=== PATIENT | female | born 1955 | race Caucasian/White ===

== ENCOUNTER 2016-04-10 17:41 | Inpatient (IN) | payer OTHER ==
[~2016-04-10] VITALS: Ht 172.7 cm; Wt 171.3 kg
[~2016-04-10 17:41] MED LIST: ADVAIR HFA120 INHALA IH; BACTRIM,SEPT1 TABLET PO; CALCIUM 600 +1 EAC7 PO; CEFEPIME-D2 GM/50 ML IV; CHILDREN'S ASPI81 M1 PO; CIPRO500 MG PO; CLEOCIN300 MG PO; CLINDAMYCIN HC300 MG PO; COUMADIN5 MG PO; COUMADIN7.5 MG PO; Coumadin,Jantoven PO; DAILY VALUE1 EACH PO; DAILY VITAMIN1 EAC8 PO; Dulcolax PR; ECOTRIN325 MG PO; FAMOTIDINE20 MG PO; FENOFIBRATE200 M1 PO; Feosol PO; HEPARIN SO5000 UNITS SC; HUMALOG100 UNIT/1 SC; HUMALOG100 UNIT/2 SC; LANTUS 10100 UNITS/ SC; LASIX40 MG PO; LEVEMIR FL100 UNIT/1 SC; LEVIMIR SQ; LEXAPRO10 MG PO; LISINOPRIL2.5 MG PO; LO-DOSE ASPIRIN81 M1 PO; LOPRESSOR25 MG PO; LOPRESSOR50 MG PO; LOVENOX150 MG/1 M SC; Lopressor PO; Lovenox SC; MAGNESIUM OXID400 MG PO; METAXALONE800 MG PO; METFORMIN HCL1000 MG PO; METOPROLOL TART25 MG PO; METOPROLOL TART50 MG PO; MILK OF MAGNESI10 ML PO; MOTRIN800 MG PO; MUCINEX600 MG PO; MULTI VITAMIN1 EACH PO; NAPROXEN500 MG PO; NOVOLOG 10100 UNITS/ SC; NOVOLOG PE100 UNITS/ SC; NYSTATIN15 GM TP; NovoLOG Pen 3 ml SC; OXYCODONE HCL15 MG PO; OxyCONTIN PO; PREDNISONE10 MG PO; PROAIR HFA8.5 GM IH; Percocet 5/325,Endoc PO; ROXICODONE5 MG PO; SENNA8.6 MG PO; SPIRIVA1 INHALATI IH; Senokot S,Pericolace PO; TRILIPIX135 MG PO; TYLENOL REGULA325 MG PO; VANCOMYCIN1 GM/150 M IV; VENTOLIN HFA18 GM IH; VITAMIN C500 M1 PO; WARFARIN SODIUM5 MG PO; ZESTRIL2.5 MG PO; ZESTRIL20 MG PO; ZINC50 M2 PO; ZYVOX600 MG PO
[2016-04-10 18:15] LABS: HEMATOCRIT 46.3 % (36.0-46.0); MCH 30.6 PG (29.0-34.0); MCHC 33.7 G/DL (30.0-36.0); MCV 90.8 FL (83-99); MEAN PLAT.VOLUME 10.4 uM^3 (9.5-12.4); PLATELET COUNT 170 K/uL (156-360); RBC DIS.WIDTH-CV 15.6 % (11.8-14.6); RBC DIS.WIDTH-SD 50.5 % (39-53); WHITE BLOOD COUNT 15.9 K/uL (4.1-10.2)
[2016-04-10 18:24] LABS: CHLORIDE 99 mEq/L (99-109); SODIUM 141 mEq/L (136-147)
[2016-04-10 18:26] LABS: GLUCOSE 198 mg/dL (70-99)
[2016-04-10 18:27] LABS: ANION GAP 13 MEQ/L (2-14)
[2016-04-10 18:28] LABS: TOTAL BILIRUBIN 0.9 mg/dL (0.0-1.0)
[2016-04-10 18:29] LABS: ALKALINE PHOSPHATASE 45 IU/L (3-129)
[2016-04-10 18:30] LABS: GFR ESTIMATE (CALCULATED) 35 mL/min/
[2016-04-10 18:31] LABS: UREA NITROGEN (BUN) 37 mg/dL (9-23)
[2016-04-10 19:12] LABS: ADD MIUA? NO; BILIRUBIN NEGATIVE; BLOOD NEGATIVE; COLOR YELLOW ((YELLOW)); GLUCOSE (STRIP) NEGATIVE; KETONES NEGATIVE; LEUKOCYTES NEGATIVE; NITRITE NEGATIVE; PH, URINE 7.5 (5-8); PROTEIN (STRIP) NEGATIVE; SPECIFIC GRAVITY 1.019 (1.000-1.030); UCUL ADDED? NO
[2016-04-10] MEDS ORDERED: XARELTO15 MG PO (19:28)
[2016-04-10] MEDS ORDERED: METFORMIN HCL500 MG PO (19:29)
[2016-04-10] MEDS ORDERED: ESCITALOPRAM OX20 MG PO (19:29)
[2016-04-11] VITALS (8 sets, daily range): BP systolic 115–133; BP diastolic 45–64
[2016-04-11 04:54] LABS: HEMATOCRIT 38.1 % (36.0-46.0); MCV 90.7 FL (83-99)
[2016-04-11 05:03] LABS: CHLORIDE 102 mEq/L (99-109); POTASSIUM 3.8 mEq/L (3.7-5.4); SODIUM 136 mEq/L (136-147)
[2016-04-11 05:06] LABS: ANION GAP 10 MEQ/L (2-14)
[2016-04-11 05:09] LABS: ALKALINE PHOSPHATASE 37 IU/L (3-129); GFR ESTIMATE (CALCULATED) 38 mL/min/; GLUCOSE 339 mg/dL (70-99); TOTAL BILIRUBIN 1.1 mg/dL (0.0-1.0)
[2016-04-11 05:09] LABS: METH RESISTANT S AUREUS PCR NEGATIVE (NEGATIVE)
[2016-04-11 05:10] LABS: UREA NITROGEN (BUN) 36 mg/dL (9-23)
[2016-04-11 05:13] LABS: PROBE CHECK PASS; SPECIMEN PROCESSING CONTROL PASS
[2016-04-11 07:10] LABS: POINT-OF-CARE METER ID UU13113803
[2016-04-11 11:02] LABS: POINT-OF-CARE METER ID UU13113803
[2016-04-11 22:28] LABS: POINT-OF-CARE USER ID 609231305
[2016-04-12] VITALS: BP 105/78
[2016-04-12 01:00] VITALS: BP 132/56
== END 2016-04-12 01:52 | disposition short-term general hospital (02) | DRG 871 ==
LOC: EME 17:41 → EDOF 04-11 01:54 → 4WEST 04-11 03:42
PROVIDERS: Emergency Medicine; Internal Medicine
DX: A41.9 Sepsis, unspecified organism (principal); M72.6 Necrotizing fasciitis; N17.9 Acute kidney failure, unspecified; E66.2 Morbid (severe) obesity with alveolar hypoventilation; Z68.43 Body mass index [BMI] 50.0-59.9, adult; L03.115 Cellulitis of right lower limb; E11.22 Type 2 diabetes mellitus with diabetic chronic kidney disease; I48.2 Chronic atrial fibrillation; R65.20 Severe sepsis without septic shock; I12.9 Hypertensive chronic kidney disease with stage 1 through stage 4 chronic kidney disease, or unspecified chronic kidney disease; E78.5 Hyperlipidemia, unspecified; J44.9 Chronic obstructive pulmonary disease, unspecified; F32.9 Major depressive disorder, single episode, unspecified
CPT/HCPCS: 73700; 74176; 80048; 80053; 80202; 81003; 82948; 83605; 85014; 85018; 85025; 85027; 87040; 87641; 94640; 94640 76; 94799; 99202; 99281; 99285; J1815; J2405; J2543; J3370; J7030; J7050; S0028

== ENCOUNTER 2016-05-30 17:51 | Inpatient (IN) | payer OTHER ==
[~2016-05-30] VITALS: Ht 172.7 cm; Wt 156.0 kg
[~2016-05-30 17:51] MED LIST changes: +ESCITALOPRAM OX20 MG PO; +METFORMIN HCL500 MG PO; +XARELTO15 MG PO
[2016-05-30 19:09] LABS: HEMATOCRIT 45.7 % (36.0-46.0); MCH 29.9 PG (29.0-34.0); MCHC 33.3 G/DL (30.0-36.0); MEAN PLAT.VOLUME 9.7 uM^3 (9.5-12.4); PLATELET COUNT 173 K/uL (156-360); RBC DIS.WIDTH-SD 51.5 % (39-53); RED BLOOD COUNT 5.08 M/uL (3.80-5.20)
[2016-05-30 19:21] LABS: CHLORIDE 100 mEq/L (99-109); POTASSIUM 4.1 mEq/L (3.7-5.4); SODIUM 140 mEq/L (136-147)
[2016-05-30 19:24] LABS: GLUCOSE 119 mg/dL (70-99)
[2016-05-30 19:25] LABS: ANION GAP 14 MEQ/L (2-14)
[2016-05-30 19:27] LABS: ALKALINE PHOSPHATASE 50 IU/L (3-129); GFR ESTIMATE (CALCULATED) 31 mL/min/
[2016-05-30 19:29] LABS: UREA NITROGEN (BUN) 30 mg/dL (9-23)
[2016-05-30 20:39] LABS: ADD MIUA? YES; BILIRUBIN NEGATIVE; BLOOD SMALL; COLOR YELLOW ((YELLOW)); GLUCOSE (STRIP) NEGATIVE; KETONES NEGATIVE; LEUKOCYTES NEGATIVE; NITRITE NEGATIVE; PROTEIN (STRIP) NEGATIVE; SPECIFIC GRAVITY 1.018 (1.000-1.030)
[2016-05-30 20:44] LABS: BACTERIA RARE /HPF; EPITHELIAL CELLS 1+ /HPF; MUCUS NONE SEEN /LPF; RED BLOOD CELLS 0-5 /HPF (0-5); UCUL ADDED? NO; WHITE BLOOD CELLS 0-5 /HPF (0-5)
[2016-05-30] MEDS ORDERED: LANTUS 10100 UNITS/ SC (20:46)
[2016-05-30] MEDS ORDERED: LASIX40 MG PO (20:46)
[2016-05-30] MEDS ORDERED: LOPRESSOR50 MG PO (20:47)
[2016-05-30] MEDS ORDERED: XARELTO15 MG PO (20:47)
[2016-05-30] MEDS ORDERED: GLUCOPHAGE500 MG PO (20:47)
[2016-05-30] MEDS ORDERED: LOFIBRA200 MG PO (20:48)
[2016-05-30] MEDS ORDERED: ADVAIR 100/501 DISK IH (20:48)
[2016-05-30] MEDS ORDERED: ZESTRIL2.5 MG PO (20:48)
[2016-05-30] MEDS ORDERED: HUMALOG100 UNIT/2 SC (20:49)
[2016-05-30] MEDS ORDERED: ZINC50 M3 PO (20:50)
[2016-05-30] MEDS ORDERED: LEXAPRO20 MG PO (20:50)
[2016-05-30] MEDS ORDERED: SPIRIVA1 INHALATI IH (20:50)
[2016-05-30] MEDS ORDERED: THERAGRAN1 TABLET PO (20:50)
[2016-05-30] MEDS ORDERED: CALCIUM 600 +1 EA16 PO (20:51)
[2016-05-30] MEDS ORDERED: BAYER CHEWABLE81 MG PO (20:51)
[2016-05-30] MEDS ORDERED: TYLENOL REGULA325 MG PO (20:51)
[2016-05-30 22:53] LABS: POINT-OF-CARE METER ID UU14100415
[2016-05-31] VITALS (11 sets, daily range): BP systolic 113–160; BP diastolic 52–67
[2016-05-31 05:59] LABS: POINT-OF-CARE METER ID UU14100415
[2016-05-31 06:35] LABS: HEMATOCRIT 36.9 % (36.0-46.0); MCH 30.2 PG (29.0-34.0); MCHC 33.1 G/DL (30.0-36.0); MCV 91.3 FL (83-99); MEAN PLAT.VOLUME 9.2 uM^3 (9.5-12.4); PLATELET COUNT 152 K/uL (156-360); RBC DIS.WIDTH-CV 16.1 % (11.8-14.6); RBC DIS.WIDTH-SD 52.2 % (39-53); RED BLOOD COUNT 4.04 M/uL (3.80-5.20); WHITE BLOOD COUNT 15.7 K/uL (4.1-10.2)
[2016-05-31 06:43] LABS: CHLORIDE 102 mEq/L (99-109); SODIUM 135 mEq/L (136-147)
[2016-05-31 06:46] LABS: ANION GAP 9 MEQ/L (2-14); GLUCOSE 265 mg/dL (70-99)
[2016-05-31 06:48] LABS: ALKALINE PHOSPHATASE 41 IU/L (3-129); GFR ESTIMATE (CALCULATED) 38 mL/min/; TOTAL BILIRUBIN 1.4 mg/dL (0.0-1.0)
[2016-05-31 06:50] LABS: UREA NITROGEN (BUN) 28 mg/dL (9-23)
[2016-05-31 08:41] LABS: POINT-OF-CARE METER ID UU14100415
[2016-05-31 14:19] LABS: POINT-OF-CARE METER ID UU13113702
[2016-06-01] VITALS (7 sets, daily range): BP systolic 117–140; BP diastolic 55–65
[2016-06-01 10:20] LABS: EOSINOPHIL (%) 3.1 % (0-5); EOSINOPHIL COUNT 0.3 K/uL (0-0.3); HEMATOCRIT 34.9 % (36.0-46.0); IMMATURE GRANULOCYTE (%) 0.5 % (0.0-0.7); LYMPHOCYTE COUNT 0.7 K/uL (1.0-2.8); MCH 30.8 PG (29.0-34.0); MCHC 33.2 G/DL (30.0-36.0); MCV 92.6 FL (83-99); MONOCYTE (%) 7.6 % (3-12); MONOCYTE COUNT 0.6 K/uL (0-0.8); NEUTROPHIL (%) 79.8 % (45-76); NEUTROPHIL COUNT 6.6 K/uL (1.8-6.4); PLATELET COUNT 120 K/uL (156-360); RBC DIS.WIDTH-CV 16.4 % (11.8-14.6); RBC DIS.WIDTH-SD 55.3 % (39-53); RED BLOOD COUNT 3.77 M/uL (3.80-5.20); WHITE BLOOD COUNT 8.3 K/uL (4.1-10.2)
[2016-06-01 10:41] LABS: ANION GAP 7 MEQ/L (2-14); CHLORIDE 103 MEQ/L (99-109); POTASSIUM 4.1 MEQ/L (3.7-5.4); SAMPLE HEMOLYSIS CHECK 1; SAMPLE ICTERIC CHECK 0; SAMPLE LIPEMIA CHECK 0; SODIUM 136 MEQ/L (136-147)
[2016-06-01 10:46] LABS: GFR ESTIMATE (CALCULATED) > 59 mL/min/; GLUCOSE 216 mg/dL (70-99); UREA NITROGEN (BUN) 19 mg/dL (9-23)
[2016-06-01 21:02] LABS: POINT-OF-CARE USER ID AHSUCEG
[2016-06-02 03:41] VITALS: BP 135/63
[2016-06-02 06:47] LABS: EOSINOPHIL (%) 2.3 % (0-5); EOSINOPHIL COUNT 0.2 K/uL (0-0.3); HEMATOCRIT 36.1 % (36.0-46.0); IMMATURE GRANULOCYTE (%) 0.5 % (0.0-0.7); LYMPHOCYTE COUNT 0.9 K/uL (1.0-2.8); MCH 28.8 PG (29.0-34.0); MCHC 31.3 G/DL (30.0-36.0); MCV 91.9 FL (83-99); MEAN PLAT.VOLUME 10.1 uM^3 (9.5-12.4); MONOCYTE (%) 6.7 % (3-12); MONOCYTE COUNT 0.6 K/uL (0-0.8); NEUTROPHIL (%) 79.6 % (45-76); NEUTROPHIL COUNT 6.6 K/uL (1.8-6.4); PLATELET COUNT 130 K/uL (156-360); RBC DIS.WIDTH-SD 53.8 % (39-53); RED BLOOD COUNT 3.93 M/uL (3.80-5.20); WHITE BLOOD COUNT 8.2 K/uL (4.1-10.2)
[2016-06-02 07:09] LABS: ANION GAP 8 MEQ/L (2-14); CHLORIDE 105 MEQ/L (99-109); GFR ESTIMATE (CALCULATED) 54 mL/min/; GLUCOSE 195 mg/dL (70-99); MAGNESIUM 1.9 mg/dl (1.3-2.7); POTASSIUM 3.9 MEQ/L (3.7-5.4); SAMPLE HEMOLYSIS CHECK 0; SAMPLE ICTERIC CHECK 0; SAMPLE LIPEMIA CHECK 0; SODIUM 138 MEQ/L (136-147); UREA NITROGEN (BUN) 17 mg/dL (9-23)
[2016-06-02 07:59] VITALS: BP 123/60
[2016-06-02 11:57] VITALS: BP 126/59
[2016-06-02 16:02] VITALS: BP 163/71
[2016-06-02 19:20] VITALS: BP 133/63
[2016-06-02 21:38] LABS: POINT-OF-CARE USER ID AHSUCEG
[2016-06-03] VITALS (7 sets, daily range): BP systolic 128–155; BP diastolic 65–98
[2016-06-03 06:17] LABS: EOSINOPHIL (%) 2.1 % (0-5); EOSINOPHIL COUNT 0.2 K/uL (0-0.3); HEMATOCRIT 35.4 % (36.0-46.0); IMMATURE GRANULOCYTE (%) 1.1 % (0.0-0.7); IMMATURE GRANULOCYTE COUNT 0.1 K/uL; LYMPHOCYTE COUNT 0.9 K/uL (1.0-2.8); MCH 30.3 PG (29.0-34.0); MCHC 32.5 G/DL (30.0-36.0); MCV 93.4 FL (83-99); MEAN PLAT.VOLUME 10.1 uM^3 (9.5-12.4); MONOCYTE (%) 9.8 % (3-12); MONOCYTE COUNT 0.7 K/uL (0-0.8); NEUTROPHIL (%) 73.2 % (45-76); NEUTROPHIL COUNT 5.2 K/uL (1.8-6.4); PLATELET COUNT 143 K/uL (156-360); RBC DIS.WIDTH-SD 54.4 % (39-53); RED BLOOD COUNT 3.79 M/uL (3.80-5.20); WHITE BLOOD COUNT 7.1 K/uL (4.1-10.2)
[2016-06-03 06:42] LABS: ANION GAP 8 MEQ/L (2-14); CHLORIDE 105 MEQ/L (99-109); GFR ESTIMATE (CALCULATED) > 59 mL/min/; GLUCOSE 223 mg/dL (70-99); MAGNESIUM 1.9 mg/dl (1.3-2.7); SAMPLE HEMOLYSIS CHECK 0; SAMPLE ICTERIC CHECK 0; SAMPLE LIPEMIA CHECK 0; SODIUM 138 MEQ/L (136-147); UREA NITROGEN (BUN) 16 mg/dL (9-23)
[2016-06-04 03:07] VITALS: BP 144/66
[2016-06-04 08:00] VITALS: BP 172/77
[2016-06-04 12:07] VITALS: BP 180/84
[2016-06-04] MEDS ORDERED: ZYVOX600 MG PO (14:03)
== END 2016-06-04 18:21 | disposition home or self-care (01) | DRG 603 ==
LOC: EME 17:51 → EDOF 21:38 → 2EAST 21:38
PROVIDERS: Hospitalist; Internal Medicine; Physician Assistant; Student in an Organized Health Care Education/Training Program
PROC: 0HDHXZZ Extraction of Right Upper Leg Skin, External Approach (ICD-10-PCS; principal; 2016-06-01)
DX: L03.115 Cellulitis of right lower limb (principal); F33.9 Major depressive disorder, recurrent, unspecified; Z68.43 Body mass index [BMI] 50.0-59.9, adult; E66.01 Morbid (severe) obesity due to excess calories; E11.22 Type 2 diabetes mellitus with diabetic chronic kidney disease; E11.65 Type 2 diabetes mellitus with hyperglycemia; D69.6 Thrombocytopenia, unspecified; I48.0 Paroxysmal atrial fibrillation; R09.02 Hypoxemia; I12.9 Hypertensive chronic kidney disease with stage 1 through stage 4 chronic kidney disease, or unspecified chronic kidney disease; N18.3 Chronic kidney disease, stage 3 (moderate); J44.9 Chronic obstructive pulmonary disease, unspecified; G47.33 Obstructive sleep apnea (adult) (pediatric); E78.5 Hyperlipidemia, unspecified; R23.8 Other skin changes; Z79.01 Long term (current) use of anticoagulants
CPT/HCPCS: 71020; 74176; 80048; 80053; 80202; 81003; 82948; 83605; 83735; 85025; 85027; 87040; 87070; 87075; 87205; 93005; 93971; 94640; 94640 76; 94799; 99281; 99285; J1815; J2270; J2405; J2543; J3370; J7030; J7050

== ENCOUNTER 2016-08-24 07:43 | Inpatient (IN) | payer OTHER ==
[~2016-08-24] VITALS: Ht 172.7 cm; Wt 159.2 kg
[~2016-08-24 07:43] MED LIST changes: +ADVAIR 100/501 DISK IH; +BAYER CHEWABLE81 MG PO; +CALCIUM 600 +1 EA16 PO; +GLUCOPHAGE500 MG PO; +LEXAPRO20 MG PO; +LOFIBRA200 MG PO; +THERAGRAN1 TABLET PO; +ZINC50 M3 PO
[2016-08-24 09:18] LABS: HEMATOCRIT 41.7 % (36.0-46.0); MCH 29.2 PG (29.0-34.0); MCHC 32.6 G/DL (30.0-36.0); MCV 89.5 FL (83-99); MEAN PLAT.VOLUME 9.5 uM^3 (9.5-12.4); PLATELET COUNT 162 K/uL (156-360); RBC DIS.WIDTH-CV 15.9 % (11.8-14.6); RBC DIS.WIDTH-SD 52.2 % (39-53); RED BLOOD COUNT 4.66 M/uL (3.80-5.20); WHITE BLOOD COUNT 17.5 K/uL (4.1-10.2)
[2016-08-24 09:29] LABS: CHLORIDE 101 mEq/L (99-109); SODIUM 136 mEq/L (136-147)
[2016-08-24 09:31] LABS: GLUCOSE 191 mg/dL (70-99)
[2016-08-24 09:32] LABS: ANION GAP 13 MEQ/L (2-14)
[2016-08-24 09:34] LABS: GFR ESTIMATE (CALCULATED) 45 mL/min/
[2016-08-24 09:35] LABS: UREA NITROGEN (BUN) 22 mg/dL (9-23)
[2016-08-24 10:26] LABS: ADD MIUA? NO; BILIRUBIN NEGATIVE; BLOOD NEGATIVE; COLOR YELLOW ((YELLOW)); GLUCOSE (STRIP) NEGATIVE; KETONES NEGATIVE; LEUKOCYTES NEGATIVE; NITRITE NEGATIVE; PROTEIN (STRIP) NEGATIVE; SPECIFIC GRAVITY 1.011 (1.000-1.030); UCUL ADDED? NO; UROBILINOGEN 0.2 MG/DL (0.2-1.0)
[2016-08-24] MEDS ORDERED: FENOFIBRATE200 M1 PO (13:04)
[2016-08-24] MEDS ORDERED: ADVAIR 250/501 DISK IH (13:04)
[2016-08-24] MEDS ORDERED: PROAIR HFA8.5 GM IH (13:07)
[2016-08-24] MEDS ORDERED: METFORMIN HCL500 MG PO (13:07)
[2016-08-24 15:34] VITALS: BP 130/59
[2016-08-24 17:20] LABS: POINT-OF-CARE METER ID UU14188625
[2016-08-24 19:41] VITALS: BP 106/58
[2016-08-24 21:56] LABS: POINT-OF-CARE METER ID UU14174225
[2016-08-25 00:22] VITALS: BP 153/66
[2016-08-25 06:25] LABS: MCHC 32.8 G/DL (30.0-36.0); MCV 91.5 FL (83-99); MEAN PLAT.VOLUME 9.6 uM^3 (9.5-12.4); PLATELET COUNT 153 K/uL (156-360); RBC DIS.WIDTH-CV 16.2 % (11.8-14.6); RBC DIS.WIDTH-SD 54.7 % (39-53); RED BLOOD COUNT 4.26 M/uL (3.80-5.20)
[2016-08-25 06:38] LABS: WHITE BLOOD COUNT 8.8 K/uL (4.1-10.2)
[2016-08-25 06:55] LABS: ANION GAP 7 MEQ/L (2-14); CHLORIDE 106 MEQ/L (99-109); GFR ESTIMATE (CALCULATED) 49 mL/min/; POTASSIUM 4.1 MEQ/L (3.7-5.4); SAMPLE HEMOLYSIS CHECK 0; SAMPLE ICTERIC CHECK 0; SAMPLE LIPEMIA CHECK 0; SODIUM 140 MEQ/L (136-147); UREA NITROGEN (BUN) 18 mg/dL (9-23)
[2016-08-25 07:02] LABS: GLUCOSE 111 mg/dL (70-99)
[2016-08-25 08:02] LABS: POINT-OF-CARE METER ID UU14188625
[2016-08-25 08:56] VITALS: BP 112/55
[2016-08-25 12:38] LABS: POINT-OF-CARE METER ID UU14188625
[2016-08-25 13:50] VITALS: BP 131/64
[2016-08-25 16:20] VITALS: BP 146/76
[2016-08-25 17:05] LABS: POINT-OF-CARE METER ID UU14188625
[2016-08-25 19:54] VITALS: BP 144/70
[2016-08-25 21:20] LABS: POINT-OF-CARE METER ID UU14174225
[2016-08-25 23:44] VITALS: BP 110/51
[2016-08-26 04:15] VITALS: BP 134/53
[2016-08-26 07:54] VITALS: BP 132/60
[2016-08-26 08:48] LABS: POINT-OF-CARE METER ID UU14174225
[2016-08-26 11:27] VITALS: BP 129/61
[2016-08-26 15:57] VITALS: BP 128/65
[2016-08-26 20:07] VITALS: BP 137/77
[2016-08-27 07:29] VITALS: BP 133/64
[2016-08-27 08:29] LABS: HEMATOCRIT 40.3 % (36.0-46.0); MCHC 32.5 G/DL (30.0-36.0); MCV 89.2 FL (83-99); MEAN PLAT.VOLUME 9.9 uM^3 (9.5-12.4); PLATELET COUNT 177 K/uL (156-360); RBC DIS.WIDTH-CV 15.8 % (11.8-14.6); RED BLOOD COUNT 4.52 M/uL (3.80-5.20)
[2016-08-27 08:32] LABS: CHLORIDE 106 mEq/L (99-109); POTASSIUM 4.1 mEq/L (3.7-5.4); SODIUM 138 mEq/L (136-147)
[2016-08-27 08:35] LABS: ANION GAP 11 MEQ/L (2-14); GLUCOSE 194 mg/dL (70-99)
[2016-08-27 08:38] LABS: GFR ESTIMATE (CALCULATED) 54 mL/min/
[2016-08-27 08:39] LABS: UREA NITROGEN (BUN) 20 mg/dL (9-23)
[2016-08-27 11:10] VITALS: BP 130/62
[2016-08-27 11:45] LABS: POINT-OF-CARE METER ID UU14174225
[2016-08-27 15:47] VITALS: BP 142/63
[2016-08-27 17:20] LABS: POINT-OF-CARE METER ID UU14174225
[2016-08-27 19:54] VITALS: BP 127/56
[2016-08-27 21:44] LABS: POINT-OF-CARE METER ID UU14188625
[2016-08-28 07:46] LABS: POINT-OF-CARE METER ID UU14188625
[2016-08-28 07:55] VITALS: BP 150/62
[2016-08-28] MEDS ORDERED: KEFLEX500 MG PO (09:37)
[2016-08-28 11:20] LABS: POINT-OF-CARE METER ID UU14188625
[2016-08-28 15:29] VITALS: BP 119/56
== END 2016-08-28 16:49 | disposition home or self-care (01) | DRG 602 ==
LOC: EME 07:43 → 5SOUTH 13:17 → EDOF 13:17 → 5SOUTH 15:03
PROVIDERS: Emergency Medicine; Hospitalist; Internal Medicine
DX: L03.317 Cellulitis of buttock (principal); E13.10 Other specified diabetes mellitus with ketoacidosis without coma; I48.2 Chronic atrial fibrillation; Z68.43 Body mass index [BMI] 50.0-59.9, adult; I13.0 Hypertensive heart and chronic kidney disease with heart failure and stage 1 through stage 4 chronic kidney disease, or unspecified chronic kidney disease; I08.1 Rheumatic disorders of both mitral and tricuspid valves; E87.2 Acidosis; E11.22 Type 2 diabetes mellitus with diabetic chronic kidney disease; I50.32 Chronic diastolic (congestive) heart failure; E66.01 Morbid (severe) obesity due to excess calories; F32.9 Major depressive disorder, single episode, unspecified; E86.0 Dehydration; J44.9 Chronic obstructive pulmonary disease, unspecified; D72.829 Elevated white blood cell count, unspecified; E78.5 Hyperlipidemia, unspecified; M25.551 Pain in right hip; N18.3 Chronic kidney disease, stage 3 (moderate); Z79.4 Long term (current) use of insulin
CPT/HCPCS: 76882; 80048; 80202; 81003; 82948; 83605; 85027; 85651; 87040; 87801; 93005; 94640; 94640 76; 94660; 94760; 99202; 99281; 99285; J0690; J0696; J1815; J3370; J7030; J7050

== ENCOUNTER 2017-03-29 08:56 | Emergency (ER) | payer OTHER ==
[~2017-03-29] VITALS: Ht 172.7 cm; Wt 158.1 kg
[~2017-03-29 08:56] MED LIST changes: +ADVAIR 250/501 DISK IH; +KEFLEX500 MG PO
[2017-03-29 10:06] LABS: HEMATOCRIT 46.3 % (36.0-46.0); HEMOGLOBIN 15.1 G/DL (11.9-15.5); MCH 29.5 PG (29.0-34.0); MCHC 32.6 G/DL (30.0-36.0); MCV 90.6 FL (83-99); PLATELET COUNT 168 K/uL (156-360); RBC DIS.WIDTH-CV 14.6 % (11.8-14.6); RBC DIS.WIDTH-SD 48.2 % (39-53); RED BLOOD COUNT 5.11 M/uL (3.80-5.20); WHITE BLOOD COUNT 11.7 K/uL (4.1-10.2)
[2017-03-29 10:23] LABS: CHLORIDE 105 mEq/L (99-109); POTASSIUM 5.2 mEq/L (3.7-5.4); SODIUM 140 mEq/L (136-147)
[2017-03-29 10:25] LABS: GLUCOSE 207 mg/dL (70-99)
[2017-03-29 10:26] LABS: TOTAL PROTEIN 7.4 g/dL (6.4-8.3)
[2017-03-29 10:27] LABS: TOTAL BILIRUBIN 0.8 mg/dL (0.0-1.0)
[2017-03-29 10:27] LABS: TROP-I INTERPRETATION NEGATIVE; TROPONIN-I < 0.01 ng/mL (0.0-0.30)
[2017-03-29 10:29] LABS: ALKALINE PHOSPHATASE 57 IU/L (3-129); CREATININE 1.1 mg/dL (0.6-1.3); GFR ESTIMATE (CALCULATED) 54 mL/min/
[2017-03-29 10:30] LABS: UREA NITROGEN (BUN) 21 mg/dL (9-23)
[2017-03-29 10:31] LABS: AST (GOT) 29 IU/L (2-34)
[2017-03-29 10:32] LABS: ALT (GPT) 22 IU/L (3-49)
[2017-03-29 11:55] LABS: APPEARANCE CLEAR ((CLEAR)); BILIRUBIN NEGATIVE; BLOOD SMALL; COLOR YELLOW ((YELLOW)); GLUCOSE (STRIP) 50; KETONES NEGATIVE; LEUKOCYTES TRACE; NITRITE NEGATIVE; PROTEIN (STRIP) NEGATIVE; SPECIFIC GRAVITY 1.016 (1.000-1.030); UROBILINOGEN 0.2 MG/DL (0.2-1.0)
[2017-03-29 11:57] LABS: BACTERIA NONE SEEN /HPF; EPITHELIAL CELLS RARE /HPF; MUCUS TRACE /LPF; RED BLOOD CELLS 0-5 /HPF (0-5); UCUL ADDED? NO; WHITE BLOOD CELLS 0-5 /HPF (0-5)
[2017-03-29] MEDS ORDERED: NAPROXEN500 MG PO (14:17)
[2017-03-29] MEDS ORDERED: ZOFRAN ODT4 MG PO (14:17)
[2017-03-29 14:51] VITALS: BP 123/48
== END 2017-03-29 14:51 | disposition home or self-care (01) ==
LOC: EME 08:56
PROVIDERS: Physician Assistant
DX: N20.0 Calculus of kidney (principal); I11.0 Hypertensive heart disease with heart failure; I50.9 Heart failure, unspecified; E78.5 Hyperlipidemia, unspecified; E11.9 Type 2 diabetes mellitus without complications; J45.909 Unspecified asthma, uncomplicated; F41.9 Anxiety disorder, unspecified; F32.9 Major depressive disorder, single episode, unspecified; Z79.4 Long term (current) use of insulin; Z88.0 Allergy status to penicillin; Z88.8 Allergy status to other drugs, medicaments and biological substances
CPT/HCPCS: 71020; 74177; 80048; 80053; 81003; 84484; 85027; 93005; 99281; 99285; J1885; J7120